=== PATIENT | female | born 1950 ===

== ENCOUNTER 2017-02-28 21:29 | Emergency (ER) | payer OTHER ==
[~2017-02-28] VITALS: Ht 162.6 cm; Wt 49.0 kg
[~2017-02-28 21:29] MED LIST: JANUMET 50-1,1 UDTAB PO; LANTUS SOLOSTAR3 ML SQ; LISINOPRIL20 MG PO
[2017-02-28] MEDS ORDERED: GLIMEPIRIDE2 MG (21:47)
[2017-02-28] MEDS ORDERED: METFORMIN HCL500 MG (21:47)
[2017-03-01] MEDS ORDERED: ZITHROMAX500 MG PO (01:00)
[2017-03-01] MEDS ORDERED: FLONASE ALLERG9.9 ML NASAL (01:00)
[2017-03-01] MEDS ORDERED: TESSALON PERLE100 MG PO (01:00)
[2017-03-01] MEDS ORDERED: MUCINEX DM ER1 EAC1 PO (01:00)
== END 2017-03-01 01:01 | disposition home or self-care (01) ==
LOC: ER 21:29
DX: J32.8 Other chronic sinusitis (principal); B34.9 Viral infection, unspecified; J11.1 Influenza due to unidentified influenza virus with other respiratory manifestations